=== PATIENT | female | born 1950 | race Caucasian/White ===

== ENCOUNTER 2017-06-16 18:25 | Emergency (ER) | payer OTHER ==
[~2017-06-16] VITALS: Ht 167.6 cm; Wt 57.7 kg
[2017-06-16 22:31] VITALS: BP 184/98
== END 2017-06-16 22:35 | disposition home or self-care (01) ==
LOC: EME 18:25 → EXP 18:25
DX: S80.11XA Contusion of right lower leg, initial encounter (principal); Z20.3 Contact with and (suspected) exposure to rabies; W55.01XA Bitten by cat, initial encounter; Z23 Encounter for immunization; Z29.14 Encounter for prophylactic rabies immune globulin
CPT/HCPCS: 99281; 99284

== ENCOUNTER 2017-06-19 13:26 | Emergency (ER) | payer OTHER ==
[~2017-06-19] VITALS: Ht 167.6 cm; Wt 58.1 kg
[2017-06-19 18:00] VITALS: BP 146/71
== END 2017-06-20 06:57 | disposition home or self-care (01) ==
LOC: EME 13:26
PROC: 3E0234Z Introduction of Serum, Toxoid and Vaccine into Muscle, Percutaneous Approach (ICD-10-PCS; principal; 2017-06-19)
DX: Z20.3 Contact with and (suspected) exposure to rabies (principal); Z23 Encounter for immunization; Z29.14 Encounter for prophylactic rabies immune globulin
CPT/HCPCS: 99281; 99284